=== PATIENT | male | born 1985 | race Caucasian/White ===

== ENCOUNTER 2020-05-10 16:48 | Outpatient (REF) | payer OTHER, SELFPAY ==
[2020-05-10 18:09] LABS: Alanine Aminotransferase 63 U/L (0-40); Albumin Level 4.4 g/dL (3.5-5.0); Alkaline Phosphatase 98 U/L (39-117); Anion Gap 15 (12-20); Aspartate Amino Transferase 38 U/L (5-37); Bilirubin Total 0.4 mg/dL (0.0-1.0); Blood Urea Nitrogen 10 mg/dL (9-16); Carbon Dioxide 25 mmol/L (22-29); Chloride 104 mmol/L (96-108); Cholesterol 170 mg/dL; Estimated Glomerular Filt Rate > 60; Glucose Fasting 91 mg/dL (60-99); HDL Cholesterol 41 mg/dL; LDL Cholesterol Calculated 118 mg/dl; Potassium 4.3 mmol/l (3.3-5.1); Sodium 140 mmol/L (135-145); Total Protein 7.5 g/dL (6.5-8.0); Triglycerides 57 mg/dL
[2020-05-10 18:10] LABS: Microalbum/Creatinine Ratio Ur 4.3 ug/mg cr
[2020-05-10 18:31] LABS: TSH reflex Free T4 1.68 mIU/mL (0.32-4.0)
== END 2020-05-10 16:49 | disposition home or self-care (01) ==
LOC: HO.LAB 16:48
PROVIDERS: PCP Family Medicine; Visit Provider Family Medicine
DX: Z00.00 Encounter for general adult medical examination without abnormal findings (principal); R03.0 Elevated blood-pressure reading, without diagnosis of hypertension
CPT/HCPCS: 80053; 80061; 82043; 84443

== ENCOUNTER 2020-05-29 16:53 | Outpatient (REF) | payer OTHER, SELFPAY ==
--- NOTE | 2020-05-29 17:02 | XR_ITS ---
EXAMINATION: XR CHEST CLINICAL INFORMATION: Encounter for general adult medical examination without abnormal finding COMPARISON: Chest x-ray 04/18/2010. TECHNIQUE: 2 views of the chest were obtained. FINDINGS: No significant abnormality is noted involving the heart, lungs, mediastinum, bony thorax or soft tissues. XR/XR chest 2V IMPRESSION: Unremarkable examination.
== END 2020-05-29 16:54 | disposition home or self-care (01) ==
LOC: HO.XRAY 16:53
PROVIDERS: Visit Provider Family Medicine
DX: Z00.00 Encounter for general adult medical examination without abnormal findings (principal)
CPT/HCPCS: 71046

== ENCOUNTER 2020-08-04 16:25 | Outpatient (REF) | payer OTHER, SELFPAY ==
[2020-08-04 18:47] LABS: Alanine Aminotransferase 64 U/L (0-40); Albumin Level 4.5 g/dL (3.5-5.0); Alkaline Phosphatase 108 U/L (39-117); Anion Gap 14 (12-20); Aspartate Amino Transferase 32 U/L (5-37); Bilirubin Total 0.5 mg/dL (0.0-1.0); Blood Urea Nitrogen 7 mg/dL (9-16); Calcium 9.1 mg/dL (8.4-10.2); Carbon Dioxide 26 mmol/L (22-29); Chloride 103 mmol/L (96-108); Cholesterol 165 mg/dL; Estimated Glomerular Filt Rate > 60; Glucose Fasting 86 mg/dL (60-99); HDL Cholesterol 45 mg/dL; LDL Cholesterol Calculated 107 mg/dl; Sodium 139 mmol/L (135-145); Total Protein 7.5 g/dL (6.5-8.0); Triglycerides 65 mg/dL
[2020-08-04 19:10] LABS: TSH reflex Free T4 1.67 mIU/mL (0.32-4.0)
== END 2020-08-04 16:26 | disposition home or self-care (01) ==
LOC: HO.LAB 16:25
PROVIDERS: PCP Family Medicine; Visit Provider Family Medicine
DX: Z00.00 Encounter for general adult medical examination without abnormal findings (principal); I10 Essential (primary) hypertension
CPT/HCPCS: 36415; 80053; 80061; 82043; 84443

== ENCOUNTER 2020-08-09 | Outpatient (REF) | payer OTHER, SELFPAY ==
[2020-08-09 17:47] LABS: Creatinine Urine 94.14 mg/dL; Microalbumin Urine < 5.0 mg/L
== END 2020-08-09 00:01 | disposition home or self-care (01) ==
LOC: HO.LNP
PROVIDERS: Visit Provider Family Medicine
DX: I10 Essential (primary) hypertension (principal)
CPT/HCPCS: 82043

== ENCOUNTER 2020-11-28 16:11 | Outpatient (REF) | payer OTHER, SELFPAY ==
--- NOTE | ~2020-11-28 | XR_ITS ---
EXAMINATION: XR LUMBOSACRAL SPINE CLINICAL INFORMATION: Low back pain COMPARISON: None TECHNIQUE: Three views of the lumbosacral spine. FINDINGS: Bone alignment is normal. No fracture or dislocation is seen. There is degenerative disc disease at L4-L5 and L5-S1. There is lower lumbar spine facet arthritis. XR/XR lumbar spine 2-3V IMPRESSION: Degenerative disc disease at L4-L5 and L5-S1 and lower lumbar spine facet arthritis.
== END 2020-11-28 16:12 | disposition home or self-care (01) ==
LOC: HO.XRAY 16:11
PROVIDERS: PCP Family Medicine; Visit Provider Family Medicine
DX: M54.40 Lumbago with sciatica, unspecified side (principal)
CPT/HCPCS: 72100

== ENCOUNTER 2020-12-15 18:09 | Outpatient (REF) | payer OTHER, SELFPAY ==
--- NOTE | ~2020-12-15 | MR_ITS ---
EXAMINATION: MR LUMBAR SPINE WITHOUT CONTRAST CLINICAL INFORMATION: Bilateral leg pain and weakness. Urinary incontinence. COMPARISON: Lumbar spine radiographs dated 11/28/2020. TECHNIQUE: MRI of the lumbar spine was obtained using routine sequences without contrast. FINDINGS: VERTEBRAL BODIES AND PARASPINAL STRUCTURES: Normal vertebral body alignment. The lumbar lordosis is maintained. No acute fracture or subluxation. No loss of vertebral body height. Prominent loss of intervertebral disc height with disc desiccation at L4-L5 and L5-S1. Prominent Modic type I degenerative endplate changes at L4-L5. No additional abnormal marrow signal. The visualized paraspinal soft tissues are unremarkable. CONUS MEDULLARIS AND CAUDA EQUINA: Normal, terminating at the level of L1. SPINAL LEVELS: T12-L1: No significant disc bulge. No central canal or neural foraminal stenosis. L1-L2: No significant disc bulge. No central canal or neural foraminal stenosis. L2-L3: No significant disc bulge. Bilateral facet arthropathy. No central canal or neural foraminal stenosis. L3-L4: Left extraforaminal disc protrusion which contacts the exiting left L3 nerve root. Bilateral facet arthropathy without significant central canal or right neural foraminal stenosis. Mild left neural foraminal stenosis. L4-L5: Broad-based disc bulge with a superimposed left paracentral and left subarticular disc protrusion which contacts the exiting left L4 nerve root as well as the traversing left S1 nerve root. Bilateral facet arthropathy and thickening of the ligamentum flavum with mild central canal as well as [id number] left and moderate right neural foraminal stenosis. L5-S1: Broad-based disc bulge with a superimposed left paracentral disc protrusion which demonstrates mild caudal migration. This contacts the traversing left S1 nerve root within the lateral recess. Prominent bilateral facet arthropathy and thickening of the ligamentum flavum with [id number] central canal as well as severe left and [id number] right neural foraminal stenosis. MR/MR lumbar spine wo con IMPRESSION: 1. Prominent degenerative disc disease at L4-L5 with degenerative endplate changes. Broad-based disc bulge with a superimposed left paracentral and left subarticular disc protrusion which contacts the exiting left L4 nerve root and traversing left S1 nerve root. Bilateral facet arthropathy and thickening of the ligamentum flavum causing mild central canal as well as [id number] left and moderate right neural foraminal stenosis. 2. Degenerative disc disease at L5-S1 with a broad-based disc bulge and superimposed left paracentral disc protrusion with mild caudal migration. The protrusion contacts the traversing left S1 nerve root. Bilateral facet arthropathy and thickening of the ligamentum flavum with [id number] central canal as well as severe left and [id number]-[id number] right neural foraminal stenosis. 3. Left extraforaminal disc protrusion at L3-L4 which contacts the exiting left L3 nerve root and causes mild left neural foraminal stenosis.
== END 2020-12-15 18:10 | disposition home or self-care (01) ==
LOC: HO.MRI 18:09
PROVIDERS: Visit Provider Family Medicine
DX: M54.40 Lumbago with sciatica, unspecified side (principal); R32 Unspecified urinary incontinence
CPT/HCPCS: 72148

== ENCOUNTER 2021-01-04 11:23 | Outpatient (REF) | payer OTHER, SELFPAY ==
[2021-01-04 12:15] LABS: Alanine Aminotransferase 54 U/L (0-40); Albumin Level 4.5 g/dL (3.5-5.0); Alkaline Phosphatase 95 U/L (39-117); Anion Gap 13 (12-20); Aspartate Amino Transferase 29 U/L (5-37); Bilirubin Total 0.3 mg/dL (0.0-1.0); Blood Urea Nitrogen 15 mg/dL (9-16); Calcium 9.8 mg/dL (8.4-10.2); Carbon Dioxide 25 mmol/L (22-29); Chloride 106 mmol/L (96-108); Estimated Glomerular Filt Rate > 60; Glucose Random 115 mg/dL (60-115); Potassium 3.8 mmol/L (3.3-5.1); Sodium 140 mmol/L (135-145); Total Protein 7.6 g/dL (6.5-8.0)
[2021-01-05 09:22] LABS: Lyme Abs Screen <0.90 index
== END 2021-01-04 11:24 | disposition home or self-care (01) ==
LOC: HO.LAB 11:23
PROVIDERS: Absent Provider Psychiatry & Neurology Neurology; PCP Family Medicine; Visit Provider Family Medicine
DX: G83.4 Cauda equina syndrome (principal); R74.01 Elevation of levels of liver transaminase levels
CPT/HCPCS: 36415; 80053; 86617; 86618

== ENCOUNTER 2021-04-05 09:47 | Outpatient (REF) | payer OTHER, SELFPAY ==
[2021-04-05 10:53] LABS: Influenza A PCR NEGATIVE (Negative); Influenza B PCR NEGATIVE (Negative); Resp Syncy Virus RNA Qual PCR NEGATIVE (Negative); SARS COV2 PCR INHOUSE NEGATIVE (Negative)
== END 2021-04-05 09:48 | disposition home or self-care (01) ==
LOC: HO.LAB 09:47
PROVIDERS: PCP Family Medicine; Visit Provider Family Medicine
DX: Z20.822 Contact with and (suspected) exposure to COVID-19 (principal)
CPT/HCPCS: 0241U; 36415